=== PATIENT | female | born 1975 | race Caucasian/White ===

== ENCOUNTER 2017-03-06 18:39 | Emergency (ER) | payer MEDICAID, OTHER ==
[~2017-03-06] VITALS: Wt 73.5 kg
[2017-03-06] MEDS ORDERED: IBUPROFEN 600 MG TAB PO ONE (19:30)
[2017-03-06] MEDS ORDERED: AZIT250T94 PO (20:15)
[2017-03-06] MEDS ORDERED: PROM5SYR2 PO (20:15)
[2017-03-06] MEDS ORDERED: IBUP-1542 PO (20:15)
--- NOTE | 2017-03-06 20:19 | ERD ---
ER Documentation Chief Complaint Date/Time DATE: 03/06/17 TIME: 20:17 Chief Complaint CHEST WALL PAIN WITH COUGH AND CONGESTION FOR THE PAST 2 WKS. FEVERS HPI This 41-year-old female complains of anterior chest wall pain and productive cough for last 2 weeks. She has low-grade temperature at triage. She denies vomiting, abdominal pain, diarrhea, sustained anterior chest pain. ROS All systems reviewed and are negative except as per history of present illness. Medications Home Meds Active Scripts Ibuprofen* (Motrin*) 600 Mg Tab, 600 MG PO Q6, #15 TAB Prov:STEPHANIE BROWN MD 03/06/17 Promethazine HCl/Codeine (Prometh-Codein 6.25-10 mg/5 ml) 5 Ml Syrup, 5 ML PO TID for 5 Days 4 OZ Prov:STEPHANIE BROWN MD 03/06/17 Azithromycin* (Zithromax*) 250 Mg Tablet, 250 MG PO .ZPACK DIRECTED, #6 TAB TAKE 500 MG (2 TABS) THE FIRST DAY THEN 250 MG (1 TAB) DAYS 2-5 Prov:STEPHANIE BROWN MD 03/06/17 PMhx/Soc Medical and Surgical Hx: pt denies Surgical Hx Hx Alcohol Use: No Hx Substance Use: No Hx Tobacco Use: No Smoking Status: Never smoker Physical Exam Vitals Vital Signs Date Time Temp Pulse Resp B/P Pulse Ox O2 Delivery O2 Flow Rate FiO2 03/06/17 18:47 100.6 101 21 108/69 96 Physical Exam Const: [] Head: Atraumatic Eyes: Normal Conjunctiva ENT: Normal External Ears, Nose and Mouth. Neck: Full range of motion..~ No meningismus. Resp: Clear to auscultation bilaterally Cardio: Regular rate and rhythm, no murmurs Abd: Soft, non tender, non distended. Normal bowel sounds Skin: No petechiae or rashes Back: No midline or flank tenderness Ext: No cyanosis, or edema Neur: Awake and alert Psych: Normal Mood and Affect Results 24 hrs Current Medications Medications (Trade) Dose Ordered Sig/Summer Route PRN Reason Start Time Stop Time Status Last Admin Dose Admin Ibuprofen (Motrin) 600 mg ONCE ONCE PO 03/06/17 19:30 03/06/17 19:31 DC 5/27/17 19:32 Procedures/MDM EKG: Rate/Rhythm: [Normal Sinus Rhythm] rate equals 100 QRS, ST, T-waves: [No changes consistent w/ acute ischemia] Impression: [No evidence of ischemia or arrhythmia]. Patient having no acute findings on EKG Chest X-ray 1V Interpreted by me: Soft Tissue: No acute abnormalities Bones: No acute abnormalities Mediastinum/Cardiac Silhouette/Lungs: [No acute abnormalities] impression have normal 1 view chest x-ray Patient presents with productive cough and low-grade fever worsening over the last 2 weeks. Some signs of respiratory distress for hypoxemia. She will be treated with Zithromax for bronchitis as well as promethazine with codeine and ibuprofen. The patient was stable with no new complaints during the ER course. Clinically, there is no current evidence to suggest meningitis, sepsis, acute abdomen, pneumonia, acute coronary syndrome, pulmonary embolism, or any other emergent condition appearing to require further evaluation or hospitalization. The patient should certainly return for any new or worsening symptoms per the aftercare instructions. They should otherwise follow-up with her primary care doctor for reevaluation this week. Departure Diagnosis: Primary Impression: Bronchitis Condition: Stable Patient Instructions: Acute Bronchitis Additional Instructions: X-ray normal. Cheque otro vez con grayson doctor primario en el proximo [place] or regresa para mas o nueva simptomas. STEPHANIE BROWN MD March 06, 2017 20:19
[2017-03-06 20:30] VITALS: BP 144/77; PULSE 88; RESP 20; TEMP 99.4
--- NOTE | 2017-03-06 21:01 | RADRPT ---
PROCEDURE: XR Chest. CLINICAL INDICATION: Fever. TECHNIQUE: Single frontal view of the chest. COMPARISON: None. FINDINGS: The cardiomediastinal silhouette is within normal limits. The lungs are clear. No signs of pleural f luid or pneumothorax are seen. The osseous structures and soft tissues are unremarkable. IMPRESSION: No evidence for active cardiopulmonary disease. RPTAT: [facility] Physician Noah Date Time Electronically viewed and signed by Physician Noah on 03/06/2017 21:01 PAT/
== END 2017-03-06 20:32 | disposition home or self-care (01) ==
LOC: FTE 18:39
DX: J20.9 Acute bronchitis, unspecified (principal)
CPT/HCPCS: 71010; Z7610; 93005; 99284

== ENCOUNTER 2018-06-05 21:51 | Emergency (ER) | END 2018-06-05 23:53 | disposition home or self-care (01) ==

== ENCOUNTER 2019-04-28 14:20 | Emergency (ER) | payer MEDICAID ==
[~2019-04-28] VITALS: Ht 160 cm; Wt 69.5 kg
[~2019-04-28 14:20] MED LIST: AZIT250T PO; HYDR-4011 PO; IBUP-1542 PO; PROM5SYR2 PO
[2019-04-28 14:33] VITALS: BP 119/64; PULSE 100; RESP 18; Ht 160 cm; Wt 69.5 kg
--- NOTE | 2019-04-28 14:40 | ERD ---
ER Documentation Chief Complaint Chief Complaint SORE THROAT X 3 DAYS WITH COUGH WITH YELLOW PHLEGM HPI 43-year-old female, with history of diabetes, presents to the emergency department, complaining worsening of sore throat, associated with tactile fever, productive cough of yellowish sputum, chills and general malaise. The patient has been using [id number] medication without improvement of the symptoms. She denies chest pain, no palpitations, no shortness of breath, no headache, no neck pain. ROS All systems reviewed and are negative except as per history of present illness. Medications Home Meds Active Scripts Cetirizine Hcl* (Zyrtec*) 10 Mg Capsule, 10 MG PO DAILY, #10 TAB.CHEW Prov:ARIELLE PINEDA MD 04/28/19 Acetaminophen* (Tylenol*) 325 Mg Tablet, 2 TAB PO Q6 PRN for PAIN AND OR ELEVATED TEMP, #20 TAB Prov:ARIELLE PINEDA MD 04/28/19 Amoxicillin* (Amoxicillin*) 500 Mg Cap, 500 MG PO TID for 7 Days, CAP Prov:ARIELLE PINEDA MD 04/28/19 Hydrocodone/Acetaminophen ([place] 5-325 Tablet) 1 Each Tablet, 1 TAB PO Q6H PRN for PAIN, #7 TAB Prov:SANTA PERERA PA-C 06/05/18 Ibuprofen* (Motrin*) 600 Mg Tab, 600 MG PO Q6, #15 TAB Prov:STEPHANIE BROWN MD 03/06/17 Promethazine HCl/Codeine (Prometh-Codein 6.25-10 mg/5 ml) 5 Ml Syrup, 5 ML PO TID for 5 Days 4 OZ Prov:STEPHANIE BROWN MD 03/06/17 Azithromycin* (Zithromax*) 250 Mg Tablet, 250 MG PO .ZPACK DIRECTED, #6 TAB TAKE 500 MG (2 TABS) THE FIRST DAY THEN 250 MG (1 TAB) DAYS 2-5 Prov:STEPHANIE BRWON MD 03/06/17 Allergies Allergies: Coded Allergies: No Known Allergy (Unverified , 06/05/18) PMhx/Soc Hx Alcohol Use: Yes (OCCASIONAL) Hx Substance Use: No Hx Tobacco Use: No FmHx Family History: No diabetes, No coronary disease Physical Exam Vitals Vital Signs Date Temp Pulse Resp B/P (MAP) Pulse Ox O2 O2 Flow FiO2 Time Delivery Rate 04/28/19 98.9 100 18 119/64 97 14:33 (82) Physical Exam Patient is in moderate distress due to fever, vital signs showed fever. EYES: PERRLA, EOMI, injected sclerae EARS: Canals clear, erythematous tympanic membranes THROAT: Erythematous oropharynx with bilateral exudates NECK: Supple, + tender cervical lymphadenopathy. Full ROM without pain or tenderness. HEART: RRR, no rubs, murmurs, clicks or gallops. LUNGS: Bilateral rhonchi to auscultation. ABDOMEN: Soft, non-tender without masses or hepatosplenomegaly. EXTREMITIES: No edema bilaterally. BACK: Full ROM, no deformity, normal back exam NEURO: Cranial nerves grossly intact, no motor or sensory deficit Procedures/MDM Differential diagnosis include but not limited to: Tonsillar/pharyngeal infection bacterial/viral/fungal, parotitis, allergies, GERD. Less likely peritonsillar abscess, retropharyngeal abscess. No signs of upper respiratory obstruction Physical examination and clinical presentation consistent most likely with acute suppurative tonsillitis. Centor criteria 4/5. During the ED course the patient remained stable. Clinical impression discussed with the patient who agrees with management. The patient is stable to be treated outpatient and will be discharged home with a Rx for antibiotic and ibuprofen. Some side effects of prescribed medications (headache, rash, nausea, vomiting, diarrhea, drowsiness, habituation, bleeding, hypertension, interactions with other medications) were reviewed. The patient was instructed to follow up with the primary care provider in the next 48h. If symptoms persist, worsen or new symptoms develop, then patient should return to the ED immediately. Disclaimer: Inadvertent spelling and grammatical errors are likely due to EHR/dictation software use and do not reflect on the overall quality of patient care. Also, please note that the electronic time recorded on this note does not necessarily reflect the actual time of the patient encounter. Departure Diagnosis: Primary Impression: Acute suppurative tonsillitis Condition: Stable Additional Instructions: Muchas dominique por [facility] para grayson servicio. Esperamos que en grayson visita a la kenroy de emergencia grayson problema medico haya sido solucionado y que se sienta mucho mejor. Para estar seguros que grayson mejoria sigue en proceso, le pedimos el favor de hacer madelyn denis de seguimiento medico con grayson doctor primario en los proximos 2-4 [place]. Lleve con usted estos documentos y las medicinas recetadas. Si archana sintomas empeoran, NO SE ESPERE, por favor regrese a kenroy de emergencia INMEDIATAMENTE. En sandra que usted no tenga un mdico de atencin primaria: Llame al mdico o clnica comunitaria de referencia que aparece abajo kayla las horas de consultorio para hacer madelyn denis para que le vean. CLINICAS: [facility] [phone] [phone] [facility] [phone] [facility] [phone] [facility] [phone] [id number] [facility] [phone] ARIELLE GARCIA MD Apr 28, 2019 14:40
[2019-04-28] MEDS ORDERED: CETI10CA PO (14:42)
[2019-04-28] MEDS ORDERED: ACET325T33 PO (14:42)
[2019-04-28] MEDS ORDERED: AMOX500C2 PO (14:42)
== END 2019-04-28 14:43 | disposition home or self-care (01) ==
LOC: E/R 14:20
DX: J03.90 Acute tonsillitis, unspecified (principal); E11.9 Type 2 diabetes mellitus without complications
CPT/HCPCS: 99283

== ENCOUNTER 2019-06-18 01:12 | Emergency (ER) | payer MEDICAID ==
[~2019-06-18] VITALS: Ht 160 cm; Wt 69.5 kg
[~2019-06-18 01:12] MED LIST changes: +ACET325T33 PO; +AMOX500C2 PO; +CEPH-443 PO; +CETI10CA PO; +SULF1TAB31 PO
[2019-06-18 01:13] VITALS: Ht 160 cm; Wt 69.5 kg
[2019-06-18 05:10] VITALS: BP 108/78; PULSE 78; RESP 20
== END 2019-06-18 05:15 | disposition home or self-care (01) ==
LOC: E/R 01:12
DX: M79.671 Pain in right foot (principal)
CPT/HCPCS: 73630; 80053; 85025; 85651; 86140; 93926; Z7502